=== PATIENT | female | born 1955 | race Caucasian/White ===

== ENCOUNTER → 2017-08-28 | Outpatient (CLI) | payer MEDICARE, BC ==
[~2017-08-28] MED LIST: ALEVE220 MG PO; ASCORBIC ACID500 M3 PO; CALCIUM 250+D1 EACH PO; COMBIGAN O20 DROP/5 RIGHT EYE; COQ-10100 MG PO; CRESTOR5 MG PO; CYCLOBENZAPRINE10 MG PO; CYMBALTA60 MG PO; DAILY MULTIPLE1 EACH PO; Ecotrin PO; HYDROCODON-ACE1 EAC7 PO; LEVOTHYROXINE25 MCG PO; LIDODERM 5% P1 PATCH TD; LIPITOR40 MG PO; LITE COAT ASPI325 M1 PO; LUMIGAN 0.50 DROP/22 BOTH EYES; MAGNESIUM250 M1 PO; OMEGA-31000 M1 PO; PROBIOTIC1 EAC1 PO; RESTASIS 01 DROP/0.4 BOTH EYES; TRAZODONE HCL100 MG PO; VAGIFEM10 MCG VG; VENTOLIN HFA18 GM IH; VITAMIN D1000 INTUN PO
== END | disposition home or self-care (01) ==
LOC: CDC 14:17
DX: Z01.810 Encounter for preprocedural cardiovascular examination (principal); R94.31 Abnormal electrocardiogram [ECG] [EKG]
CPT/HCPCS: 93000

== ENCOUNTER 2017-12-12 12:25 | Inpatient (IN) | payer OTHER, BC ==
[~2017-12-12] VITALS: Ht 172.7 cm; Wt 77.8 kg
[~2017-12-12 12:25] MED LIST changes: -LUMIGAN 0.50 DROP/22 BOTH EYES; +LUMIGAN 0.50 DROP/22 RIGHT EYE
[2017-12-12 13:50] LABS: BASOPHIL (%) 0.6 % (0-1); EOSINOPHIL (%) 1.8 % (0-5); EOSINOPHIL COUNT 0.1 K/uL (0-0.3); HEMATOCRIT 37.2 % (36.0-46.0); HEMOGLOBIN 13.5 G/DL (11.9-15.5); IMMATURE GRANULOCYTE (%) 0.1 % (0.0-0.7); LYMPHOCYTE (%) 16.6 % (15-42); LYMPHOCYTE COUNT 1.2 K/uL (1.0-2.8); MCH 34.4 PG (29.0-34.0); MCHC 36.3 G/DL (30.0-36.0); MCV 94.7 FL (83-99); MONOCYTE (%) 5.8 % (3-12); MONOCYTE COUNT 0.4 K/uL (0-0.8); NEUTROPHIL (%) 75.1 % (45-76); NEUTROPHIL COUNT 5.4 K/uL (1.8-6.4); PLATELET COUNT 235 K/uL (156-360); RBC DIS.WIDTH-CV 11.2 % (11.8-14.6); RBC DIS.WIDTH-SD 38.8 % (39-53); RED BLOOD COUNT 3.93 M/uL (3.80-5.20); WHITE BLOOD COUNT 7.2 K/uL (4.1-10.2)
[2017-12-12 13:56] LABS: AMYLASE 39 IU/L (1-118); CHLORIDE 90 mEq/L (99-109); POTASSIUM 4.1 mEq/L (3.7-5.4); SODIUM 125 mEq/L (136-147)
[2017-12-12 13:57] LABS: INTER. NORMALIZED RATIO 0.9
[2017-12-12 13:58] LABS: GLUCOSE 99 mg/dL (70-99)
[2017-12-12 14:01] LABS: SERUM ETHYL ALCOHOL < 10 mg/dL
[2017-12-12 14:02] LABS: CREATININE 0.6 mg/dL (0.6-1.3); GFR ESTIMATE (CALCULATED) > 59 mL/min/
[2017-12-12 14:03] LABS: UREA NITROGEN (BUN) 9 mg/dL (9-23)
[2017-12-12 14:05] LABS: LIPASE 6 U/L (1.0-51.0)
[2017-12-12 14:08] LABS: TROP-I INTERPRETATION NEGATIVE; TROPONIN-I < 0.01 ng/mL (0.0-0.30)
[2017-12-12 14:47] LABS: APPEARANCE SL.HAZY ((CLEAR)); BILIRUBIN NEGATIVE; BLOOD SMALL; COLOR YELLOW ((YELLOW)); GLUCOSE (STRIP) NEGATIVE; KETONES NEGATIVE; LEUKOCYTES LARGE; NITRITE NEGATIVE; PROTEIN (STRIP) NEGATIVE; SPECIFIC GRAVITY 1.012 (1.000-1.030); UROBILINOGEN 0.2 MG/DL (0.2-1.0)
[2017-12-12 14:56] LABS: MAGNESIUM 2.2 mg/dL (1.3-2.7)
[2017-12-12 14:57] LABS: AMPHETAMINE NEGATIVE (500 ng/mL); BARBITURATES NEGATIVE (200 ng/mL); BENZODIAZEPINES NEGATIVE (150 ng/mL); BUPRENORPHINE NEGATIVE (10 ng/mL); COCAINE NEGATIVE (150 ng/mL); METHADONE NEGATIVE (200 ng/mL); METHAMPHETAMINE NEGATIVE (500 ng/mL); OPIATES (MORPHINE) NEGATIVE (100 ng/mL); OXYCODONE NEGATIVE (100 ng/mL); PHENCYCLIDINE NEGATIVE (25 ng/mL); PROPOXYPHENE NEGATIVE (300 ng/mL); THC CANNABINOIDS NEGATIVE (50 ng/mL); TRICYCLIC ANTIDEPRESSANTS NEGATIVE (300 ng/mL)
[2017-12-12 15:12] LABS: RED BLOOD CELLS 0-5 /HPF (0-5); WHITE BLOOD CELLS 40-50 /HPF (0-5)
[2017-12-12 15:14] LABS: BACTERIA RARE /HPF; EPITHELIAL CELLS 1+ /HPF; MUCUS NONE SEEN /LPF; UCUL ADDED? YES
[2017-12-12] MEDS ORDERED: CARBAMAZEPINE200 MG PO (15:29)
[2017-12-12] MEDS ORDERED: NASONEX17 GM BOTH NARES (15:29)
[2017-12-12] MEDS ORDERED: MACROBID100 MG PO (15:29)
[2017-12-12] MEDS ORDERED: COZAAR25 MG PO (15:30)
[2017-12-12 17:44] LABS: HDL CHOLESTEROL 84 MG/DL (Desirable>=50); LDL CHOLESTEROL 160 mg/dL (Desirable<100); NON-HDL CHOLESTEROL 181 mg/dL (Desirable<160); TOTAL CHOLESTEROL 265 mg/dL (Desirable<200); TRIGLYCERIDES 107 MG/DL (Normal: <150)
[2017-12-12 19:53] VITALS: BP 156/85
[2017-12-12 20:29] LABS: URIC ACID 2.2 mg/dL (3.1-9.2)
[2017-12-13 00:06] VITALS: BP 132/75
[2017-12-13 01:40] LABS: CHLORIDE 97 mEq/L (99-109); POTASSIUM 3.8 mEq/L (3.7-5.4); SODIUM 128 mEq/L (136-147)
[2017-12-13 01:42] LABS: GLUCOSE 109 mg/dL (70-99)
[2017-12-13 01:46] LABS: CREATININE 0.7 mg/dL (0.6-1.3); GFR ESTIMATE (CALCULATED) > 59 mL/min/
[2017-12-13 01:47] LABS: UREA NITROGEN (BUN) 9 mg/dL (9-23)
[2017-12-13 04:34] VITALS: BP 110/58
[2017-12-13 06:12] LABS: ALBUMIN 3.5 G/DL (3.2-4.8); CHLORIDE 96 MEQ/L (99-109); CREATININE 0.6 MG/DL (0.6-1.3); GFR ESTIMATE (CALCULATED) > 59 mL/min/; GLUCOSE 93 mg/dL (70-99); POTASSIUM 4.2 MEQ/L (3.7-5.4); SODIUM 129 MEQ/L (136-147); UREA NITROGEN (BUN) 8 mg/dL (9-23); URIC ACID 2.2 mg/dL (3.1-9.2)
[2017-12-13 07:42] VITALS: BP 139/73
[2017-12-13 12:12] LABS: THYROTROPIN (TSH) 1.5 MIU/L (0.4-5.5)
[2017-12-13 15:37] VITALS: BP 125/77
[2017-12-13 15:44] LABS: CHLORIDE 102 MEQ/L (99-109); CREATININE 0.6 MG/DL (0.6-1.3); GFR ESTIMATE (CALCULATED) > 59 mL/min/; GLUCOSE 136 mg/dL (70-99); POTASSIUM 4.5 MEQ/L (3.7-5.4); UREA NITROGEN (BUN) 8 mg/dL (9-23)
[2017-12-13 15:45] LABS: SODIUM 136 MEQ/L (136-147)
[2017-12-13 19:16] VITALS: BP 108/75
[2017-12-13 22:44] LABS: CHLORIDE 103 MEQ/L (99-109); CREATININE 0.6 MG/DL (0.6-1.3); GFR ESTIMATE (CALCULATED) > 59 mL/min/; POTASSIUM 4.4 MEQ/L (3.7-5.4); SODIUM 137 MEQ/L (136-147); UREA NITROGEN (BUN) 13 mg/dL (9-23)
[2017-12-13 22:51] LABS: GLUCOSE 91 mg/dL (70-99)
[2017-12-14] VITALS: BP 111/62
[2017-12-14 04:43] VITALS: BP 128/61
[2017-12-14 08:10] LABS: CHLORIDE 99 MEQ/L (99-109); CREATININE 0.5 MG/DL (0.6-1.3); GFR ESTIMATE (CALCULATED) > 59 mL/min/; GLUCOSE 83 mg/dL (70-99); POTASSIUM 3.9 MEQ/L (3.7-5.4); SODIUM 134 MEQ/L (136-147); UREA NITROGEN (BUN) 13 mg/dL (9-23); URIC ACID 2.6 mg/dL (3.1-9.2)
[2017-12-14 08:16] VITALS: BP 137/83
[2017-12-14 11:26] VITALS: BP 136/74
[2017-12-14] MEDS ORDERED: NITROFURANTOIN100 M3 PO (13:47)
[2017-12-14 14:01] LABS: CHLORIDE 95 MEQ/L (99-109); CREATININE 0.6 MG/DL (0.6-1.3); GFR ESTIMATE (CALCULATED) > 59 mL/min/; GLUCOSE 153 mg/dL (70-99); POTASSIUM 3.8 MEQ/L (3.7-5.4); SODIUM 128 MEQ/L (136-147); UREA NITROGEN (BUN) 13 mg/dL (9-23)
[2017-12-14 15:33] VITALS: BP 128/78
== END 2017-12-14 18:07 | disposition home or self-care (01) | DRG 644 ==
LOC: EME 12:25 → EDOF 15:13 → ENRESERV 15:17 → EDOF 16:45 → 4SOUTH 16:45
PROVIDERS: Hospitalist; Internal Medicine; Internal Medicine Nephrology; Physician Assistant; Student in an Organized Health Care Education/Training Program
DX: E22.2 Syndrome of inappropriate secretion of antidiuretic hormone (principal); R20.0 Anesthesia of skin; R42 Dizziness and giddiness; T42.1X5A Adverse effect of iminostilbenes, initial encounter; N39.0 Urinary tract infection, site not specified; M79.7 Fibromyalgia; I10 Essential (primary) hypertension; E03.9 Hypothyroidism, unspecified; J45.909 Unspecified asthma, uncomplicated; K21.9 Gastro-esophageal reflux disease without esophagitis; G47.00 Insomnia, unspecified; Z86.73 Personal history of transient ischemic attack (TIA), and cerebral infarction without residual deficits
CPT/HCPCS: 70450; 70551; 71045; 80048; 80048 91; 80061; 80069; 81003; 82150; 83036; 83690; 83735; 83930; 83935; 84295; 84300; 84443; 84484; 84550; 85025; 85027; 85610; 85730; 86850; 86900; 86901; 87086; 93005; 93306; 93880; 99281; 99285; G0480; J2597; J7060; J7070